=== PATIENT | female | born 1980 | race Caucasian/White ===

== ENCOUNTER 2020-01-15 15:37 | Outpatient (CLI) | payer OTHER, SELFPAY ==
--- NOTE | ~2020-01-15 | XR_ITS ---
EXAMINATION: XR elbow RT min 3V DATE: 01/15/2020 15:58 INDICATION: Right elbow pain and swelling, cellulitis TECHNIQUE: Anteroposterior, two oblique and lateral views of the right elbow were obtained. COMPARISON: None. FINDINGS: Alignment is normal. No fracture or joint effusion. Joint spaces are normal. Olecranon burs itis is noted. IMPRESSION: 1. Olecranon bursitis without acute osseous abnormality. Reviewed, dictated and finalized at location A.
== END 2020-01-15 15:38 | disposition home or self-care (01) ==
LOC: ANHIMG 15:40
PROVIDERS: PCP Physician Assistant; Visit Provider Physician Assistant
DX: L03.113 Cellulitis of right upper limb (principal); M70.21 Olecranon bursitis, right elbow
CPT/HCPCS: 73080

== ENCOUNTER 2020-01-25 15:24 | Emergency (ER) | payer OTHER, SELFPAY ==
--- NOTE | ~2020-01-25 | XR_ITS ---
XR elbow RT min 3V 01/25/2020 16:01 INDICATION: Right elbow pain PROCEDURE: 4 views right elbow COMPARISON: 01/15/2020 FINDINGS: Fracture, dislocation or subluxation is not identified. Nonstandard lateral view limiting e valuation for effusion. The soft tissues appear within normal limits. No foreign bodies are identifi ed. IMPRESSION: 1: NO ACUTE BONE OR JOINT ABNORMALITY IDENTIFIED. Reviewed, dictated and finalized at location A.
[2020-01-25 15:32] VITALS: BP 120/70; PULSE 70; RESP 18; TEMP 37.4; O2SAT 100
--- NOTE | 2020-01-25 16:16 | ED.SKABFB ---
HPI - Skin/Abscess/Foreign Bdy General Chief complaint: Skin/Abscess/Foreign Body Stated complaint: R ELBOW SWELLING, FEVER ON ABX Time Seen by Provider: 01/25/20 15:37 Source: patient Mode of arrival: ambulatory Limitations: no limitations History of Present Illness HPI narrative: Patient is a 39-year-old female who presents to emergency department for evaluation of right elbow pain noting that for the last week and a half she has had swelling and was diagnosed with olecranon bursitis being followed by orthopedic surgery at [facility]. Patient has been on Bactrim and Keflex for a week and a half. Patient notes aching pain with redness and swelling to the posterior aspect of the elbow. Patient Related Data Home Medications Medication Instructions Recorded Confirmed cephalexin 500 mg PO Q6H 01/25/20 sulfamethoxazole-trimethoprim 1 tablet PO Q12H 01/25/20 [Bactrim DS] Allergies Allergy/AdvReac Type Severity Reaction Status Date / Time No Known Allergies Verified 01/25/20 15:37 [facility] Family History Family History (Updated 03/02/18 @ 10:36 by DOCTOR UNKNOWN) Mother Hypertension Family history of lymphoma, Onset Age: 66 Grandparent Family history of lung cancer Father Patient's father is Social History Social History Smoking status: Never smoker Second hand tobacco smoke exposure: No Alcohol intake: current Gender identity (if verbalized by the patient): Female Course Course Emergency Course: Patient in the room in no distress aware of case findings treatment plan and diagnosis. Patient given fluids and medications in the emergency department Consultations Consultation #1: Discussed case with nurse practitioner in the patient's orthopedic group at [facility] patient will follow in clinic as planned given the case findings and will be followed in clinic provided with reasons to return Date: 01/25/20 Time: 18:11 Vital Signs Vital signs: Vital Signs Temperature 99.3 F 01/25/20 15:32 Pulse Rate 70 01/25/20 15:32 Respiratory Rate 18 01/25/20 15:32 Blood Pressure 120/70 01/25/20 15:32 Pulse Oximetry 100 01/25/20 15:32 Temperature 99.3 F 01/25/20 15:32 Pulse Rate 70 01/25/20 15:32 Respiratory Rate 18 01/25/20 15:32 Blood Pressure 120/70 01/25/20 15:32 Pulse Oximetry 100 01/25/20 15:32 MDM - Skin/Abscess/Foreign Bdy MDM Narrative Medical decision making narrative: Patients injury or pain is consistent with musculoskeletal etiology. No signs of neurological or vascular compromise on exam. Compartments and tisues are soft without signs of compartment syndrome. Pain is felt appropriate for further evaluation on an outpatient basis. Patient will follow with orthopedist as planned. Patient will be pending COVID testing. Patient provided with reasons to return. Lab Data Result diagrams: 01/25/20 16:32 01/25/20 16:32 Labs: Lab Results 01/25/20 01/25/20 Range/Units 16:32 16:32 WBC 3.4 L (4.5-10.0) K/mm3 RBC 4.30 (4.2-5.4) M/mm3 Hgb 13.4 (12.0-15.0) g/dL Hct 39.4 (37.0-47.0) % MCV 91.6 (80-100) fl MCH 31.2 (26-34) pg MCHC 34.0 (32-36) g/dl RDW 12.5 (11.5-14.5) % Plt Count 176 (150-375) k/mm3 MPV 11.0 H (7.4-10.4) fl Immature Gran % (Auto) 0.3 (0-0.5) % Neut % (Auto) 70.3 (45.5-73.1) % Lymph % (Auto) 17.7 L (18.3-44.2) % [place] % (Auto) 9.6 H (2.6-8.5) % Eos % (Auto) 1.5 (0-4.4) % Baso % (Auto) 0.6 (0.2-1.2) % Lymph # (Auto) 0.61 L (0.9-3.2) K/mm3 [place] # (Auto) 0.3 (0.1-0.6) K/mm3 Eos # (Auto) 0.1 (0-0.3) K/mm3 Baso # (Auto) 0.0 (0.0-0.1) K/mm3 Abs Immat Gran (auto) 0.01 (0.00-0.031) K/mm3 Absolute Neuts (auto) 2.4 (1.3-6.7) K/mm3 Absolute Nucleated RBC 0.0 (0.0-0.012) K/mm3 Nucleated RBC % 0.0 (0.0-0.2) % Sodium 135 L (137-145) mmol/L Potassium 4.1 (3.4-5.0) mmol/L Chloride 103 (98-1
[2020-01-25] MEDS: SODIUM CHLORIDE 0.9% IV 1,000 ML 999 ML IV CONT (16:28)
[2020-01-25 16:40] LABS: Basophils Percent Auto 0.6 % (0.2-1.2); Eosinophils Absolute Auto 0.1 K/mm3 (0-0.3); Eosinophils Percent Auto 1.5 % (0-4.4); Hematocrit 39.4 % (37.0-47.0); Hemoglobin 13.4 g/dL (12.0-15.0); Immature Granulocyte Absolute 0.01 K/mm3 (0.00-0.031); Immature Granulocyte Percent A 0.3 % (0-0.5); Lymphocytes Absolute Auto 0.61 K/mm3 (0.9-3.2); Lymphocytes Percent Auto 17.7 % (18.3-44.2); Mean Corpuscular Hemoglobin 31.2 pg (26-34); Mean Corpuscular Volume 91.6 fl (80-100); Monocytes Absolute Auto 0.3 K/mm3 (0.1-0.6); Monocytes Percent Auto 9.6 % (2.6-8.5); Neutrophils Absolute Auto 2.4 K/mm3 (1.3-6.7); Neutrophils Percent Auto 70.3 % (45.5-73.1); Platelet Count Result 176 k/mm3 (150-375); Red Cell Distribution Width 12.5 % (11.5-14.5); White Blood Count 3.4 K/mm3 (4.5-10.0)
[2020-01-25 16:58] LABS: Blood Urea Nitrogen 10 mg/dL (7-17); CRP 3.5 mg/dL (<1.0); Calcium 8.7 mg/dL (8.4-10.2); Carbon Dioxide 24 mmol/L (22-30); Chloride 103 mmol/L (98-107); Estimated CRCL calculation 82 ml/min; Estimated Glomerular Filt Rate > 60; Glucose 98 mg/dL (65-105); Potassium 4.1 mmol/L (3.4-5.0); Sodium 135 mmol/L (137-145)
[2020-01-25 18:28] VITALS: BP 102/71; PULSE 58; RESP 16; O2SAT 100
== END 2020-01-25 18:30 | disposition home or self-care (01) ==
PROVIDERS: Emergency Medicine Emergency Medical Services; Emergency Provider Emergency Medicine; PCP Physician Assistant
DX: M70.21 Olecranon bursitis, right elbow (principal)
CPT/HCPCS: 36415; 73080; 80048; 85025; 86140; 96365; 99284; J0131; J7030

== ENCOUNTER 2020-06-03 09:57 | Outpatient (CLI) | payer OTHER, SELFPAY ==
--- NOTE | ~2020-06-03 | MM_ITS ---
EXAMINATION: MM screening [facility] BI w vangie HISTORY: Screening mammogram TECHNIQUE: Craniocaudal and mediolateral oblique 3-D tomosynthesis images were obtained and synthetic 2-D images were generated. CAD analysis was submitted and interpreted. COMPARISON: 05/23/2019, 05/10/2018, 11/27/2015 BREAST PARENCHYMAL COMPOSITION: The breasts are extremely dense, which lowers the sensitivity of mamm ography. FINDINGS: There is no evidence of suspicious mass, calcification, or architectural distortion to sugg est malignancy in either breast. There has been no suspicious interval change. IMPRESSION: 1. No mammographic evidence of malignancy. 2. Recommend routine screening mammography in one year. BI-RADS Category 1: Negative Reviewed, dictated and finalized at location A. LY SERVICES MANAGER
== END 2020-06-03 09:58 | disposition home or self-care (01) ==
LOC: ANHIMG 09:59
PROVIDERS: PCP Physician Assistant; Visit Provider Obstetrics & Gynecology
DX: Z12.31 Encounter for screening mammogram for malignant neoplasm of breast (principal)
CPT/HCPCS: 77063; 77067

== ENCOUNTER 2021-07-03 08:04 | Outpatient (CLI) | payer OTHER, SELFPAY ==
--- NOTE | ~2021-07-03 | MM_ITS ---
EXAMINATION: MM screening [facility] BI w vangie HISTORY: Screening TECHNIQUE: Craniocaudal and mediolateral oblique 3-D tomosynthesis images were obtained and synthetic 2-D images were generated. CAD analysis was submitted and interpreted. COMPARISON: Comparison to multiple prior studies sequentially, with oldest reviewed study dated 01/2015. BREAST PARENCHYMAL COMPOSITION: The breasts are extremely dense, which lowers the sensitivity of mamm ography. FINDINGS: There is a mass in the upper aspect of the right breast posteriorly on the MLO view, not re cognized on CC view. The left breast is stable without evidence for malignancy. IMPRESSION: 1. Possible mass upper aspect of the right breast posteriorly seen on MLO view only. 2. Additional mammographic views and possible breast ultrasound are recommended. BI-RADS Category 0: Incomplete: Needs additional imaging evaluation. Reviewed, dictated and finalized at location A. NG MACHINE REPAIRER IMPRESSION: 1. Possible mass upper aspect of the right breast posteriorly seen on MLO view only. 2. Additional mammographic views and possible breast ultrasound are recommended . BI-RADS Category 0: Incomplete: Needs additional imaging evaluation.
== END 2021-07-03 08:05 | disposition home or self-care (01) ==
LOC: ANHIMG 08:06
PROVIDERS: PCP Physician Assistant; Visit Provider Obstetrics & Gynecology
DX: Z12.31 Encounter for screening mammogram for malignant neoplasm of breast (principal); R92.8 Other abnormal and inconclusive findings on diagnostic imaging of breast
CPT/HCPCS: 77063; 77067

== ENCOUNTER 2021-07-09 12:17 | Outpatient (CLI) | payer OTHER, SELFPAY ==
--- NOTE | ~2021-07-09 | MMUS_ITS ---
EXAMINATION: MM diagnostic [facility] RT w vangie, US breast RT limited HISTORY: Right breast asymmetry on screening mammogram TECHNIQUE: Additional 3-D tomosynthesis images of the right breast were performed and synthetic 2-D i mages were generated. CAD analysis was submitted and interpreted. High resolution limited right breas t ultrasound was performed. COMPARISON: 07/03/2021, 06/03/2020, 05/23/2019, 05/10/2018 FINDINGS: MAMMOGRAPHIC FINDINGS: An asymmetry in the posterior third of the upper outer quadrant of the right breast has an appearance similar to prior mammograms with spot compression. No suspicious calcification or architectural dist ortion are identified. ULTRASOUND: There is no evidence of focal abnormal solid or cystic mass in the vicinity of the mammographic findi ng in question. IMPRESSION: 1. No mammographic or sonographic evidence of malignancy. 2. Recommend routine screening mammography in one year. BI-RADS Category 2: Benign finding(s). Reviewed, dictated and finalized at location A. OW GATHERER IMPRESSION: 1. No mammographic or sonographic evidence of malignancy. 2. Recommend routine screening mammography in one year. BI-RADS Category 2: Benign finding(s).
== END 2021-07-09 12:18 | disposition home or self-care (01) ==
LOC: ANHIMG 12:18
PROVIDERS: PCP Physician Assistant; Visit Provider Obstetrics & Gynecology
DX: R92.8 Other abnormal and inconclusive findings on diagnostic imaging of breast (principal)
CPT/HCPCS: 76642; 77061; 77065; G0279

== ENCOUNTER 2022-04-24 19:11 | Emergency (ER) | payer OTHER, SELFPAY ==
--- NOTE | ~2022-04-24 | XR_ITS ---
EXAMINATION: XR chest 2V Exam Date/Time: 04/24/2022 19:40 CDT HISTORY: cough/congestion Comparison: None available. RESULT: Lines, tubes, and devices: None. Lungs and pleura: Clear. Cardiomediastinal silhouette: Normal. Other: No acute osseous or upper abdominal finding. IMPRESSION: No acute cardiopulmonary process. Reviewed, dictated and finalized at location K.
--- NOTE | 2022-04-24 19:14 | ED.URI ---
HPI - URI/Sore Throat General Chief Complaint: Upper Respiratory Infection Stated Complaint: cough,tight chest Time Seen by Provider: 04/24/22 19:13 Source: patient Mode of arrival: ambulatory Limitations: no limitations History of Present Illness HPI Narrative: Ms. Alvarado is a 42-year-old female patient presenting to the clinic today with complaints of cough and chest tightness x6 days. She reports she had a slight cold prior to getting her COVID, flu shot on Tuesday and then her symptoms got worse. She reports she contacted her PCP on Tuesday and got a prescription for an albuterol inhaler, Robitussin with codeine, and Tessalon Perles and she reports that these are not helping. She states that her cough was initially nonproductive but is now bringing up some white phlegm. She is concerned that she may have pneumonia. Reports low-grade fever and chills. Reports her left chest wall hurts when she coughs Related Data Allergies Allergy/AdvReac Type Severity Reaction Status Date / Time No Known Allergies Verified 04/24/22 19:18 Review of Systems Review of Systems: Pertinent positives per HPI. Patient denies any fever, chills, rash, headache, visual changes, dizziness, runny nose, sore throat, shortness of breath, chest pain, palpitations, nausea, vomiting, diarrhea, constipation, abdominal pain, or any urinary issues. [facility] Past Medical History Medical History x2 full term Vaginal delivery x 2 Surgical History Surgical History H/O lumpectomy History of ankle surgery S/P ACL reconstruction Family History Family History Mother Hypertension Family history of lymphoma, Onset Age: 66 Grandparent Family history of lung cancer Father Acute myocardial infarction 65 Social History Social History Smoking status: Never smoker Second hand tobacco smoke exposure: No Alcohol intake: current Gender identity (if verbalized by the patient): Female Comments At the time of my signature, I reviewed and agree with the nursing past medical, surgical, social, and family history. There is no relevant family history pertinent to the patient complaint. Exam Narrative: General: Well-developed, well nourished, in no apparent distress Head: Normocephalic, atraumatic Eyes: Pupils equally round and reactive to light bilaterally, EOM intact, sclera and conjunctive clear, no discharge, lids normal Ears: TMs intact and clear, ear canals clear, no drainage, grossly hearing normal. Nose: Nares patent, clear nasal discharge, mild inflammation, no sinus tenderness. Mouth: Oropharynx without lesions or masses, good dentition, MMM. PND Neck: Supple, trachea midline, no enlargement of anterior or posterior cervical nodes, no thyroid masses or goiter palpable. Cardio: Regular rate and rhythm, s1 and s2 normal, no murmur appreciated. Resp: Lung sounds diminished in the bases, no rhonchi, rales, wheezing or rubs Course Course Emergency Course: Portions of this record may have been created with voice recognition software. Level of Care: Express Care Visit Vital Signs Vital signs: Vital signs reviewed MDM - URI/Sore Throat MDM Narrative Medical decision making narrative: At the time of visit patient is resting comfortably on the exam table. Chest x-ray was performed and was negative for any sign of pneumonia. I suspect patient has bronchitis. Prescription for prednisone and azithromycin was sent to the pharmacy. Supportive measures were discussed with the patient she voiced understanding of discharge instructions and agrees to treatment plan Differential Diagnosis Differential diagnosis: Likely upper respiratory infection, viral i
[2022-04-24 19:19] VITALS: BP 115/81; PULSE 61; RESP 16; TEMP 37; O2SAT 100
== END 2022-04-24 20:03 | disposition home or self-care (01) ==
PROVIDERS: Emergency Provider Nurse Practitioner Family; PCP Physician Assistant
DX: J40 Bronchitis, not specified as acute or chronic (principal)
CPT/HCPCS: 71046; 99213; G0463

== ENCOUNTER 2022-09-27 08:08 | Outpatient (CLI) | payer OTHER, SELFPAY ==
--- NOTE | ~2022-09-27 | MM_ITS ---
EXAMINATION: MM screening [facility] BI w vangie HISTORY: Screening mammogram TECHNIQUE: Craniocaudal and mediolateral oblique 3-D tomosynthesis images were obtained and synthetic 2-D images were generated. CAD analysis was submitted and interpreted. COMPARISON: 07/03/2021, 06/03/2020, 05/23/2019 BREAST PARENCHYMAL COMPOSITION:The breasts are extremely dense, which lowers the sensitivity of mammo graphy. FINDINGS: No suspicious mass, calcification, or architectural distortion are identified in either pj ast to suggest malignancy. There has been no suspicious interval change. IMPRESSION: No mammographic evidence of malignancy. Recommend routine screening mammography in one year. BI-RADS Category 1: Negative Reviewed, dictated and finalized at location .
== END 2022-09-27 08:09 | disposition home or self-care (01) ==
LOC: ANHIMG 08:09
PROVIDERS: PCP Physician Assistant; Visit Provider Obstetrics & Gynecology
DX: Z12.31 Encounter for screening mammogram for malignant neoplasm of breast (principal)
CPT/HCPCS: 77063; 77067

== ENCOUNTER 2023-10-25 10:06 | Outpatient (CLI) | payer OTHER, SELFPAY ==
--- NOTE | ~2023-10-25 | CT_ITS ---
CT Scan of the Chest without Contrast: Clinical Indication: Chronic cough Technique: Contiguous sections were acquired throughout the chest without intravenous contrast. Dose reduction technique was used on this scan by utilizing automated exposure control and iterative recon struction technique. The dose-length product (DLP) was 139.09 mGy-cm. Findings: There is no evidence of any significant mediastinal, hilar or axillary lymphadenopathy. The mediastin al soft tissues appear normal. There is no evidence of pleural or pericardial effusion. The lungs are clear. No pulmonary nodules or infiltrates are noted. Images through the upper abdomen reveal no abnormalities. Impression: No significant abnormalities seen. Reviewed, dictated and finalized at location . Impression: No significant abnormalities seen.
== END 2023-10-25 10:07 | disposition home or self-care (01) ==
PROVIDERS: PCP Physician Assistant; Visit Provider Physician Assistant
DX: R05.3 Chronic cough (principal)
CPT/HCPCS: 71250; 94060; 94726; 94729

== ENCOUNTER 2023-11-10 07:26 | Day surgery (SDC) | payer OTHER, SELFPAY ==
[2023-10-20 07:53] VITALS: BMI 24.3
[2023-10-27 13:04] VITALS: BMI 23.1
[2023-11-10 09:13] VITALS: BP 102/77; PULSE 74; RESP 20; TEMP 36.8; O2SAT 100; BMI 23.2
[2023-11-10] MEDS: LACTATED RINGERS 1,000 ML 150 ML IV CONT (09:20)
--- NOTE | 2023-11-10 09:42 | PM.HPGS ---
History of Present Illness History of Present Illness Consent: Risks, benefits, and alternatives have been discussed and questions answered. Patient agrees to proceed with procedure. Chief complaint: Chronic cough,screening neoplasm of colon Narrative: Kenia Cox is a 43 year old female presents for screening colonoscopy. Patient states that her bowel habits are normal with no pain. No bleeding. She also complains of a chronic cough. Work up to date it has been negative. EGD is requested to exclude any signs of acid reflux. Denies any heartburn. She denies any bleeding. Her weight has remained stable. Review of Systems Review of Systems: All systems reviewed & are unremarkable except as noted in HPI and below PMFSH Past Medical History Medical History x2 full term Vaginal delivery x 2 Surgical History Surgical History H/O lumpectomy History of ankle surgery S/P ACL reconstruction Family History Family History Mother Hypertension Family history of lymphoma, Onset Age: 66 Grandparent Family history of lung cancer Father Acute myocardial infarction 65 Social History Social History Smoking status: Never smoker Second hand tobacco smoke exposure: No Alcohol intake: current Drinks per week: 2 Substance use: never Substance use type: does not use Lack of Transportation: No Lack of Food: Never True Current Housing: I Have Housing Concerned About Future Housing: No Difficulty Paying Gas/Electric Bills: No Difficulty Paying for Meds: No Currently Unemployed: No Education: Bachelor's Degree Living arrangements: with family Gender identity (if verbalized by the patient): Female Spiritual care concerns: No Meds Home Medications and Allergies Home Medications Medication Instructions Recorded Confirmed Type sodium,potassium,mag sulfates 17.5 See Rx Instructions PO .COMPLEX 10/27/23 Rx gram-3.13 gram-1.6 gram oral soln #354 mL (Suprep Bowel Prep Kit) Allergies Allergy/AdvReac Type Severity Reaction Status Date / Time No Known Allergies Allergy Verified 11/10/23 09:06 Vital Signs Vital Signs - 24 hr 11/10/23 09:13 Temperature 98.2 F Pulse Rate 74 Respiratory Rate 20 Blood Pressure 102/77 Pulse Oximetry 100 Oxygen Delivery Room Air Exam Narrative: Physical exam reveals patient to be alert. Eyes stable. HEENT exam is unremarkable. Patient is anicteric. Lungs are clear. Heart without murmur. Abdomen bowel sounds present soft nontender with no organomegaly. Digital external rectal exam normal. Assessment and Plan Assessment and plan (1) Cough: Code(s): R05.9 - Cough, unspecified Status: Acute Assessment and Plan: Patient with chronic cough of uncertain etiology. EGD requested to look for any signs of acid reflux. No other symptoms are reported. (2) Encounter for screening colonoscopy: Code(s): Z12.11 - Encounter for screening for malignant neoplasm of colon Status: Acute Assessment and Plan: Patient appears to be at average risk for colon polyps. Screening exam will be performed today.
--- NOTE | 2023-11-10 09:47 | P.PNAN_ITS ---
Anes - Initial Pre Proc Eval Procedure: Operation Date: 11/10/23 10:00 Proposed Procedures p Esophagogastroduodenoscopy - Bryan Rosas MD s Screening Colonoscopy - Bryan Rosas MD Date/Time: 11/10/23 09:47 Surgeon: Bryan Rosas MD Pre Op Diagnosis: Chronic cough,screening neoplasm of colon Patient Data Age: 43 Gender: F Height: 1.65 m Weight: 63.4 kg Last Vital Signs Temp 36.8 C 11/10/23 09:13 Pulse 74 11/10/23 09:13 Resp 20 11/10/23 09:13 BP 102/77 11/10/23 09:13 Pulse Ox 100 11/10/23 09:13 O2 Del Method Room Air 11/10/23 09:13 Allergies Allergy/AdvReac Type Severity Reaction Status Date / Time No Known Allergies Allergy Verified 11/10/23 09:06 Home Medications Medication Instructions Recorded Confirmed Type sodium,potassium,mag sulfates 17.5 See Rx Instructions PO .COMPLEX 10/27/23 Rx gram-3.13 gram-1.6 gram oral soln #354 mL (Suprep Bowel Prep Kit) Patient hx anesthesia problems: none Family hx anesthesia problems: none Results Review: All pre-operative results and documents have been reviewed as part of the pre- operative evaluation. [facility] Past Medical History Medical History x2 full term Vaginal delivery x 2 Surgical History Surgical History H/O lumpectomy History of ankle surgery S/P ACL reconstruction Family History Family History Mother Hypertension Family history of lymphoma, Onset Age: 66 Grandparent Family history of lung cancer Father Acute myocardial infarction 65 Social History Social History Smoking status: Never smoker Second hand tobacco smoke exposure: No Alcohol intake: current Drinks per week: 2 Substance use: never Substance use type: does not use Lack of Transportation: No Lack of Food: Never True Current Housing: I Have Housing Concerned About Future Housing: No Difficulty Paying Gas/Electric Bills: No Difficulty Paying for Meds: No Currently Unemployed: No Education: Bachelor's Degree Living arrangements: with family Gender identity (if verbalized by the patient): Female Spiritual care concerns: No Anes - Eval Final PreProcedure Day of Procedure 11/10/23 09:47 Patient weight: normal Heart: regular rate and rhythm Lungs: clear to auscultation and normal air movement Airway: Mallampati scale class II Neurological: alert and oriented Last oral intake: >/= 8 hours ASA classification: I Emergent: no Anesthetic plan: proceed Anesthesia type and monitoring: general GIVS and standard monitoring Results Review: All pre-operative results and documents have been reviewed as part of the pre- operative evaluation. Informed Consent: The patient's anesthetic plan and its attendant risks and benefits were discussed with the patient/family/POA. Questions were solicited and answers provided to the satisfaction of the patient/family/POA.
[2023-11-10 10:49] VITALS: BP 88/60; PULSE 67; RESP 14; O2SAT 100
[2023-11-10 10:59] VITALS: BP 99/73; PULSE 64; RESP 16; O2SAT 100
[2023-11-10 11:09] VITALS: BP 104/65; PULSE 57; RESP 20; O2SAT 100
--- NOTE | 2023-11-10 11:28 | WPDANESPN ---
Anes - Prog Note Post-Op Date/Time: 11/10/23 11:28 Cardiovascular status: normal Respiratory status: normal Airway patency: baseline Mental status: baseline Post-Op hydration status: normal Vital Signs: Last Vital Signs Temp 36.8 C 11/10/23 09:13 Pulse 57 L 11/10/23 11:09 Resp 20 11/10/23 11:09 BP 104/65 11/10/23 11:09 Pulse Ox 100 11/10/23 11:09 O2 Del Method Room Air 11/10/23 11:09 Pain Score (VAS): 0 I/O: Intake & Output 11/09/23 11/10/23 11/10/23 23:59 07:59 15:59 Intake Total 750 Balance 750 Post-procedural complaints: none Patient Feedback: Patient satisfied with anesthetic care. Other Findings: Patient vital signs back to baseline. Patient denies nausea and vomiting. Patient's pain under control. Patient OK for discharge.
== END 2023-11-10 11:26 | disposition home or self-care (01) ==
PROVIDERS: PCP Physician Assistant; Visit Provider Internal Medicine Gastroenterology
PROC: 0DJ08ZZ Inspection of Upper Intestinal Tract, Via Natural or Artificial Opening Endoscopic (ICD-10-PCS; CPT 43235; principal; 2023-11-10 10:00)
PROC: 0DJD8ZZ Inspection of Lower Intestinal Tract, Via Natural or Artificial Opening Endoscopic (ICD-10-PCS; CPT 45378; 2023-11-10 10:00)
DX: Z12.11 Encounter for screening for malignant neoplasm of colon (principal); R05.3 Chronic cough; K64.8 Other hemorrhoids
CPT/HCPCS: 45378; 43235

== ENCOUNTER 2023-11-17 15:50 | Outpatient (CLI) | payer OTHER, SELFPAY ==
--- NOTE | ~2023-11-17 | MM_ITS ---
EXAMINATION: MM screening [facility] BI w vangie HISTORY: Screening mammogram TECHNIQUE: Craniocaudal and mediolateral oblique 3-D tomosynthesis images were obtained and synthetic 2-D images were generated. CAD analysis was submitted and interpreted. COMPARISON: 09/27/2022 bilateral screening mammogram 07/09/2021 diagnostic right mammogram and Limited right breast ultrasound 07/03/2021 bilateral screening mammogram BREAST PARENCHYMAL COMPOSITION: The breasts are extremely dense, which lowers the sensitivity of mamm ography. FINDINGS: Stable fibroglandular asymmetry since 07/03/2021. There is no evidence of suspicious mass, calcification, or architectural distortion to suggest malignancy in either breast. There has been no suspicious interval change. IMPRESSION: 1. No mammographic evidence of malignancy. 2. Recommend routine screening mammography in one year. BI-RADS Category 1: Negative Reviewed, dictated and finalized at location A.
== END 2023-11-17 15:51 | disposition home or self-care (01) ==
PROVIDERS: PCP Physician Assistant; Visit Provider Registered Nurse
DX: Z12.31 Encounter for screening mammogram for malignant neoplasm of breast (principal)
CPT/HCPCS: 77063; 77067

== ENCOUNTER 2024-09-28 09:31 | Outpatient (CLI) | payer OTHER, SELFPAY ==
--- NOTE | ~2024-09-28 | XR_ITS ---
CHEST RADIOGRAPH, PA AND LATERAL CLINICAL HISTORY: costal chondritis . COMPARISON: None available TECHNIQUE: PA and lateral views of the chest. FINDINGS The cardiomediastinal silhouette is unremarkable. The lungs are clear. Visualized osseous structures and soft tissues are unremarkable. IMPRESSION: No focal infiltrate or effusion. Reviewed, dictated and finalized at location A.
== END 2024-09-28 09:32 | disposition home or self-care (01) ==
LOC: GOSHIMG 09:32
PROVIDERS: PCP Physician Assistant; Visit Provider Physician Assistant
DX: M94.0 Chondrocostal junction syndrome [Tietze] (principal)
CPT/HCPCS: 71046

== ENCOUNTER 2025-03-25 08:38 | Outpatient (CLI) | payer OTHER, SELFPAY ==
--- NOTE | ~2025-03-25 | MM_ITS ---
EXAMINATION: MM screening [facility] BI w [facility] HISTORY: Screening TECHNIQUE: Craniocaudal and mediolateral oblique 3-D tomosynthesis images were obtained and synthetic 2-D images were generated. CAD analysis was submitted and interpreted. COMPARISON: Comparison to multiple prior studies sequentially, with oldest reviewed study dated 05/10/2018. BREAST PARENCHYMAL COMPOSITION: The breasts are extremely dense, which lowers the sensitivity of mammography. FINDINGS: There is no evidence of suspicious mass, calcification, or architectural distortion to suggest malignancy in either breast. Scattered benign-appearing calcifications are present. IMPRESSION: 1. No mammographic evidence of malignancy. 2. Recommend routine screening mammography in one year. BI-RADS Category 2: Benign finding(s). Reviewed, dictated and finalized at location B.
--- OUTSIDE RECORDS SUMMARY | 2025-03-25 08:48 | XMS_ITS | Clinical Summary ---
Author Organization [facility] Address [address] [place] [address] Care Team Providers Care Handkerchief Presser Name Role Phone Radha Clark Primary Care Pr ovider Allergies No known active allergies Medications spironolactone (ALDACTONE) 100 mg tablet TK 1 T PO QD 0 09/07/19 19 Active magnesium gluconate 200 mg tabletIndication s:hypomagnesemia Take 200 mg by mouth nightly Active amoxicillin (AMOXIL) 250 mg capsuleIndicatio ns:taking d/t upcoming root canal Take 50 mg by mouth 3 (three) times a day 11/08/19 19 Active HYDROcodone-acet aminophen (NORCO) 5-325 mg per tabletIndication s:Pain TAKE ONE OR TWO TABS PO Q 4-6 HR PRN PAIN 42 tablet 11/18/19 19 Active Additional Information Patient not taking.Reported on 11/15/2021 HYDROcodone-acet aminophen (NORCO) 5-325 mg per tabletIndication s:Pain TAKE ONE OR TWO TABS PO Q 4-6 HR PRN PAIN 28 tablet 11/25/19 19 Active Additional Information Patient not taking.Reported on 11/15/2021 ondansetron (ZOFRAN) 8 mg tabletIndication s:Prevention of Post-Operative Nausea and Vomiting Take 1 tablet (8 mg total) by mouth every 8 (eight) hours as needed for nausea or vomiting 20 tablet 11/18/19 19 Active Additional Information Patient not taking.Reported on 11/15/2021 adapalene (DIFFERIN) 0.1 % gel adapalene 0.1 % topical gel Active ALPRAZolam (XANAX) 0.25 mg tablet alprazolam 0.25 mg tablet TK 1 T PO HS PRN Active amoxicillin-clav ulanate (AUGMENTIN) 875-125 mg per tablet amoxicillin 875 mg-potassium clavulanate 125 mg tablet TK 1 T PO Q 12 H TAT Active azelaic acid 15 % gel azelaic acid 15 % topical gel SANDRA TO FACE QAM Active azithromycin (ZITHROMAX) 250 mg tablet azithromycin 250 mg tablet Active benzonatate (TESSALON) 200 mg capsule benzonatate 200 mg capsule Active cephalexin (KEFLEX) 500 mg capsule cephalexin 500 mg capsule Active ciprofloxacin (CIPRO) 500 mg tablet ciprofloxacin 500 mg tablet Active guaiFENesin-code ine (GUAITUSS AC) liquid 100-10 mg/5 mL Virtussin AC 10 mg-100 mg/5 mL oral liquid TK 10 ML PO HS Active doxycycline (VIBRAMYCIN) 100 mg capsule doxycycline hyclate 100 mg tablet Active influenza quadrivalent [id number] (FLUZONE) 60 mcg (15 mcg x 4)/0.5 mL syringe Fluzone Quad (PF) 60 mcg(15 mcgx4)/0.5 mL intramuscular syringe ADM 0.5ML IM UTD Active fluticasone propionate (FLONASE) 50 mcg/actuation nasal spray fluticasone propionate 50 mcg/actuation nasal spray,suspension Active levoFLOXacin (LEVAQUIN) 750 mg tablet levofloxacin 750 mg tablet TK 1 T PO QD Active mometasone (NASONEX) 50 mcg/actuation nasal spray mometasone 50 mcg/actuation nasal spray SHAKE LQ AND U 2 SPRAYS IEN D Active norethindrone-et hin estradioL (ORTHO-NOVUM 1-35 TAB,NORTREL 1-35 TAB) 1-35 mg-mcg per tablet Necon 1/35 (28) 1 mg-35 mcg tablet Active scopolamine 1 mg over 3 days patch 3 day Transderm-Scop 1.5 mg transdermal patch (1 mg over 3 days) Active sulfamethoxazole -trimethoprim (BACTRIM DS) 800-160 mg per tablet sulfamethoxazole 800 mg-trimethoprim 160 mg tablet Active tretinoin microspheres (Retin-A Micro Pump) 0.08 % gel with pump Retin-A Micro Pump 0.08 % topical gel Active clotrimazole (MYCELEX) 10 mg hever SLOWLY DISSOLE 1 T PO FIVE TIMES D 01/26/20 20 Active meloxicam (MOBIC) 15 mg tablet Take 1 tablet (15 mg total) by mouth daily with breakfast Take 1 daily with food 30 tablet 12/25/19 23 Active meloxicam (MOBIC) 15 mg tablet Take 1 tablet (15 mg total) by mouth daily 30 tablet 2 01/05/20 24 Active Active Problems Problem Noted Date Diagnosed Date Acute pharyngitis 01/22/2020 Anxiety 01/22/2020 Sinusitis 01/22/2020 Rupture of anterior cruciate ligament of right k nee 11/07/2018 Overview (11/07/2018): Added automatically from request for surgery [id number] Surgical History Surgery Date Site/Laterality Comments UTERINE FIBROID SURGERY TUMOR REMOVAL Right breast-benign ANKLE SURGERY Left ORIF with hardware FOOT SURGERY Bilateral as child, extra bones removed ANTERIOR CRUCIATE LIGAMENT REPAIR 11/17/2018 Right Medical History Medical History Date Comments TMJ (dislocation of temporomandibular joint) states has good jaw movement Acne PONV (postoperative nausea and vomiting) scope patch ordered pre-op Tooth ache upper right back --needs root canal, currently on antibiotic to help with pain relief. office aware per pt. Family History Medical History Relation Name Comments Heart disease Father Cancer Mother Relation Name Status Comments Father Mother Social History Tobacco Use Types Packs/Day Years Used Date Smoking Tobacco: Never Smokeless Tobacco: Never Alcohol Use Standard Drinks/Week Comments Yes 2 (1 standard drink = 0.6 oz pur e alcohol) Comments No Sex and Gender Information Value Date Recorded Sex Assigned at Not on file Legal Sex Female 8:04 AM [employer] Gender Identity Not on file Sexual Orientation Not on file Obstetrics History Last Filed Vital Signs Vital Sign Reading Time Taken Comments Blood Pressure 116/62 11/15/2021 5:43 PM CDT Pulse 64 11/15/2021 5:43 PM CDT Temperature 36.9 C (98.5 F) 11/15/2021 5:43 PM CDT Respiratory Rate 17 11/17/2018 11:50 AM CDT Oxygen Saturation 99% 11/15/2021 5:43 PM CDT Inhaled Oxygen Concentration - - Weight 63.5 kg (140 lb) 12/24/2022 11:16 AM CDT Height 165.1 cm (5' 5) 12/24/2022 11:16 AM CDT Body Mass Index 23.3 12/24/2022 11:16 AM CDT Plan of Treatment Health Maintenance Due Date Last Done Comments Breast Cancer Screening-Mammogram 1978 Cervical Cancer Screening 1978 Colon Cancer Screening-Colonoscopy 1978 Depression Screening 1978 Hepatitis C Screening 1978 DTaP/Tdap/Td Vaccine (1 - Tdap) 1989 Hepatitis B Screening 1996 Regular Well Visit/Exam 18-64 1996 Influenza Vaccine (#1) 2025 8, 05/14/2014, 05/30/2013 HPV Vaccines Aged Out No longer eligi ble based on patient's age to complete this topic Pneumococcal vaccine <65 Aged Out No longer eligible based on patient's age to complete this topic Medical Devices Implanted Type Area Hand Wrapper Operator Device Identifier Shelf Expiration Date Model / Serial / Lot [employer] Ar-1390e 9mm 20mm Cannulated Sheath Acl Pcl Screw Interference Titanium - [id number] Implanted:Qty: 1 on 11/17/2018 by Ariel Gaviria MD at [facility] [place] Right: Knee [employer] 05/17/2023 AR-1390E / / [id number] [employer] Ar-1390e 9mm 20mm Cannulated Sheath Acl Pcl Screw Interference Titanium - [id number] Implanted:Qty: 1 on 11/17/2018 by Ariel Gaviria MD at [facility] Right: Knee [employer] 05/17/2023 AR-1390E / / [id number] Insurance [employer] [facility] HMO [facility] HMO Care Teams Handkerchief Presser Relationship Specialty Start Date End Date Radha Clark PA PCP - General Physician [employer] 10/13/18
== END 2025-03-25 08:39 | disposition home or self-care (01) ==
LOC: ANHFOHIMG 08:40
PROVIDERS: Visit Provider Nurse Practitioner Obstetrics & Gynecology
DX: Z12.31 Encounter for screening mammogram for malignant neoplasm of breast (principal)
CPT/HCPCS: 77063; 77067

== ENCOUNTER 2025-05-13 21:03 | Emergency (ER) | payer OTHER, SELFPAY ==
--- NOTE | ~2025-05-13 | XR_ITS ---
Examination: XR chest 2V Clinical History: shortness of breath, cough Comparison: 09/28/2024 Technique: PA and Lateral Findings: Cardiomediastinal silhouette normal size and configuration. Lungs clear. No acute bony abnormality. IMPRESSION: 1. No acute cardiopulmonary findings. Reviewed, dictated and finalized at location R.
[2025-05-13 21:05] VITALS: BP 111/67; PULSE 78; RESP 16; TEMP 36.6; O2SAT 99
[2025-05-13 21:13] VITALS: O2SAT 98
--- NOTE | 2025-05-13 22:15 | ED.URI ---
HPI - URI/Sore Throat General Chief Complaint: Upper Respiratory Infection Stated Complaint: COUGH Time Seen by Provider: 05/13/25 21:33 Source: patient Mode of arrival: ambulatory Limitations: no limitations History of Present Illness HPI Narrative: This is a 45-year-old female with no significant past medical history presents to the ED for a cough. Patient states that for the past 2 days, she has been having a pretty significant dry cough has been causing her to have a sore throat with some chest tightness and shortness of breath during the coughing fits. Denies fevers, chills. She has not been around any sick contacts that she is aware of. Related Data Home Medications ?Medication ?Instructions ?Recorded ?Confirmed ?Last Taken ?Type progesterone micronized 200 mg 200 mg PO QHS 10/18/24 Unknown History capsule testosterone enanthate 50 mg/0.5 50 mg subcut WEEKLY 10/18/24 Unknown History mL subcutaneous auto-injector Allergies Allergy/AdvReac Type Severity Reaction Status Date / Time No Known Allergies Allergy Verified 05/13/25 21:07 Review of Systems Review of Systems: Gen.: Denies fevers or chills Eyes: Denies eye pain or visual change ENT: Denies congestion Respiratory: As per HPI CV: Denies chest pain or palpitations GI: Denies abdominal pain nausea, emesis or diarrhea denies burning, urgency, frequency or hematuria Musculoskeletal: Denies back pain or muscle pain Neuro: Denies numbness, tingling, weakness or focal weakness Skin: Denies rash Except as documented, all other systems reviewed and negative PMFSH Past Medical History Medical History Vaginal delivery x 2 x2 full term Surgical History Surgical History History of ankle surgery S/P ACL reconstruction H/O lumpectomy Family History Family History Mother Hypertension Family history of lymphoma, Onset Age: 66 Grandparent Family history of lung cancer Father Acute myocardial infarction 65 Social History Social History Smoking status: Never smoker Second hand tobacco smoke exposure: No Alcohol intake: current Drinks per week: 2 Substance use: never Substance use type: does not use Lack of Transportation: No Lack of Food: Never True Current Housing: I Have Housing Concerned About Future Housing: No Difficulty Paying Gas/Electric Bills: No Difficulty Paying for Meds: No Currently Unemployed: No Education: Bachelor's Degree Living arrangements: with family Gender identity (if verbalized by the patient): Female Spiritual care concerns: No Exam Narrative: APPEARANCE: No acute distress, nontoxic, resting in bed EYES: EOMI HEENT: Normocephalic, atraumatic, OMM RESPIRATORY: No respiratory distress Clear to auscultation bilaterally with no rhonchi wheezing or rales. CARDIOVASCULAR: Regular rate and rhythm without murmurs rubs or gallops. ABDOMINAL: Soft, nontender, nondistended, no rebound or guarding MUSCULOSKELETAl: Moves all extremities. No clubbing, cyanosis or edema. NEURO: Awake and alert. Following commands, speech normal, no focal deficits SKIN:: Warm, dry. No rashes lesions or abrasions PSYCHIATRIC: Normal affect/mood, Course Vital Signs Vital signs: Vital Signs Temperature 97.9 F 05/13/25 21:05 Pulse Rate 78 05/13/25 21:05 Respiratory Rate 16 05/13/25 21:05 Blood Pressure 111/67 05/13/25 21:05 Pulse Oximetry 99 05/13/25 21:05 Oxygen Delivery Room Air 05/13/25 21:05 Temperature 98.2 F 05/13/25 23:11 Pulse Rate 80 05/13/25 23:11 Respiratory Rate 20 05/13/25 23:11 Blood Pressure 113/74 05/13/25 23:11 Pulse Oximetry 100 05/13/25 23:11 Oxygen Delivery Room Air 05/13/25 21:13 MDM - URI/Sore Throat MDM Narrative Medical decision making narrative: 45-year-old female Presenting for cough. On initial evaluation patient was in no acute distress afebrile, hemodynamic stable. Differentials include but are not limited to: Viral syndrome, strep pharyngitis, viral pharyngitis, sinusitis, laryngitis, OUTDOOR ADVENTURE GUIDES, RPA Notable exam findings: Heart and lungs clear. Notable lab findings: Positive for influenza A. Notable imaging findings: Chest x-ray showed no acute process. Patient was deemed appropriate for discharge at this time. She has prescriptions for cough medications from her pcp at home. Discussed risks and benefits of tamiflu and patient has elected not to take it.She was educated on tylenol and ibuprofen use. Patient was advised follow-up with their PCP in the next week for re-evaluation. Patient was agreeable to this plan. Given strict return precautions. Medical Records Attestation: I reviewed the patient's medical records. Lab Data Attestation: I reviewed the patient's lab results. Labs: Lab Results 05/13/25 Range/Units 22:00 Influenza A (RT-PCR) Positive A (Negative) Influenza B (RT-PCR) Negative (Negative) RSV (RT-PCR) Negative (Negative) SARS-CoV-2 RNA (RT-PCR) Negative (Negative) Imaging Data Attestation: I personally reviewed and interpreted this imaging study as follows: My impression: Chest x-ray: Normal cardiac silhouette, no consolidations, no pleural effusions, no pulmonary vascular congestion Discharge Plan Discharge Clinical Impression: Influenza Patient Disposition: Home Condition: Stable Instructions: Antibiotic Form, Influenza (ED) Additional Instructions: Lab work and imaging showed your positive for influenza A. Take the cough medicine you were previously prescribed. Follow up with your PCP in the next week for reevaluation. Return to the ED for new or worsening symptoms. Patient Language: Tongan Prescriptions: No Action progesterone micronized 200 mg capsule 200 mg PO QHS testosterone enanthate 50 mg/0.5 mL auto-injector 50 mg subcut WEEKLY Follow-up/Referrals: Eduardo,NELLI Garcia [Primary Care Provider, Unknown]
[2025-05-13 22:42] LABS: Influenza A QL RT-PCR Positive (Negative); Influenza B QL RT-PCR Negative (Negative); RSV RNA, RT-PCR Negative (Negative); SARS-CoV-2 RNA PCR Negative (Negative)
[2025-05-13 23:11] VITALS: BP 113/74; PULSE 80; RESP 20; TEMP 36.8; O2SAT 100
== END 2025-05-13 23:11 | disposition home or self-care (01) ==
PROVIDERS: Emergency Provider Student in an Organized Health Care Education/Training Program; PCP Physician Assistant
DX: J10.1 Influenza due to other identified influenza virus with other respiratory manifestations (principal); Z20.822 Contact with and (suspected) exposure to COVID-19
CPT/HCPCS: 71046; 87637; 99283; J7512